=== PATIENT | female | born 1930 | race Caucasian/White ===

== ENCOUNTER 2018-04-04 20:56 | Emergency (ER) | payer MEDICARE ==
[~2018-04-04] VITALS: Ht 152.4 cm; Wt 56.7 kg
[2018-04-04 22:03] LABS: BASOPHILS % 0.4 % (0.0-1.0); EOSINOPHILS # (AUTO) 0.1 (0.0-0.4); EOSINOPHILS % 1.2 % (0.0-6.0); HEMOGLOBIN 12.6 g/dL (12.0-16.0); LYMPHOCYTES # (AUTO) 1.5 (1.0-3.2); LYMPHOCYTES % 20.6 % (18.0-39.1); MEAN CORPUSCULAR HEMOGLOBIN 29.9 pg (28-32); MEAN CORPUSCULAR HGB CONC 33.2 g/dL (31-35); MEAN CORPUSCULAR VOLUME 90.3 fL (81-99); MONOCYTES # (AUTO) 0.6 (0.2-0.8); MONOCYTES % 8.3 % (4.4-11.3); NEUTROPHILS # (AUTO) 5.1 (2.1-6.9); NEUTROPHILS % 69.2 % (38.7-80.0); PLATELET COUNT 291 x10e3/uL (140-360); RED BLOOD COUNT 4.21 x10e6/uL (3.6-5.1); RED CELL DISTRIBUTION WIDTH 13.6 % (11.7-14.4)
[2018-04-04 22:11] LABS: INR 1.1; PROTHROMBIN TIME 13.4 seconds (11.9-14.5)
[2018-04-04 22:12] LABS: PARTIAL THROMBOPLASTIN TIME 27.7 seconds (23.8-35.5)
[2018-04-04 22:20] LABS: CLARITY,URINE SL CLOUDY (CLEAR); COLOR,URINE YELLOW (YELLOW); LEUKOCYTE ESTERASE ,URINE 2+ (NEGATIVE); NITRITE,URINE NEGATIVE (NEGATIVE)
[2018-04-04 22:20] LABS: ALANINE AMINOTRANSFERASE 17 IU/L (0-55); ALBUMIN/GLOBULIN RATIO 1.1 (0.8-2.0); ALKALINE PHOSPHATASE 137 IU/L (40-150); ANION GAP 15.3 mmol/L (8-16); BLOOD UREA NITROGEN 28 mg/dL (7-26); BUN/CREATININE RATIO 26 (6-25); CALCIUM 10.9 mg/dL (8.4-10.2); CARBON DIOXIDE 27 mmol/L (22-29); CHLORIDE 103 mmol/L (98-107); CREATINE KINASE 20 IU/L (29-168); CREATININE, SERUM 1.09 mg/dL (0.57-1.11); EST GLOMERULAR FILTRATION RATE 48 ML/MIN (60-); GLUCOSE 114 mg/dL (74-118); POTASSIUM 4.3 mmol/L (3.5-5.1); SODIUM 141 mmol/L (136-145)
[2018-04-04 22:21] LABS: BACTERIA,URINE FEW /HPF; BILIRUBIN,URINE NEGATIVE (NEGATIVE); EPITHELIAL CELLS,URINE MANY /LPF; KETONES,URINE TRACE (NEGATIVE); MUCUS,URINE MANY (RARE); PROTEIN,URINE DIPSTICK TRACE (NEGATIVE); RBC,URINE 0-5 /HPF (0-5); URINE UROBILINOGEN 0.2 mg/dL (0.2 - 1); WBC,URINE (MAN) 21-50 /HPF (0-5)
[2018-04-04] MEDS ORDERED: CEFTRIAXONE SOD 1 GM VIAL IV ONE (22:30)
--- NOTE | 2018-04-04 22:52 | Diagnostic Imaging Report ---
EXAM: CHEST 2 VIEWS, SHOULDER RIGHT COMPLETE, 2 views INDICATION: Right shoulder plain and chest pain COMPARISON: None FINDINGS: LINES/TUBES: None LUNGS: No consolidations or edema. PLEURA: No effusions or pneumothorax. HEART AND MEDIASTINUM: The heart is within normal siphons. The aorta is tortuous. BONES AND SOFT TISSUES: The shoulder show mild femoral head deformity, sclerosis and cystic degenerative changes. Both are high riding suggesting prior rotator cuff injury. Degenerative changes of the thoracic spine. IMPRESSION: No acute thoracic abnormality. 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 Superior subluxation of the right humeral head in relation to the glenoid suggests prior rotator cuff injury. Signed by: Dr. Romy Chairez M.D. on 04/04/2018 10:48 PM
[2018-04-04] MEDS ORDERED: DEXAMETHASONE SOD PHOS 10 MG/1 ML VIAL IV ONE (23:30)
[2018-04-05] MEDS ORDERED: KETOROLAC TROMETHAMINE 30 MG/ML VIAL IV PRN
[2018-04-05] MEDS ORDERED: HYDROCODONE/APAP 5MG-325MG TAB PO ONE
[2018-04-05] MEDS ORDERED: KETOROLAC TROMETHAMINE 30 MG/ML VIAL ONE (00:04)
[2018-04-05 00:26] VITALS: BP 144/79
[2018-04-05] MEDS ORDERED: IBUPROFEN200 MG PO (00:26)
[2018-04-05] MEDS ORDERED: TYLENOL WITH C1 EACH PO (00:26)
== END 2018-04-05 00:42 | disposition home or self-care (01) ==
LOC: ER 20:56
DX: M25.511 Pain in right shoulder (principal); M75.91 Shoulder lesion, unspecified, right shoulder
CPT/HCPCS: 36415; 71046; 73030; 80053; 81001; 82550; 82553; 84484; 85025; 85610; 85730; 93005; 96374; 99284; J0696; J1100; J1885